=== PATIENT | male | born 1965 | race Two or more races ===

== ENCOUNTER 2017-11-07 13:14 | Emergency (ER) | payer SELFPAY ==
[~2017-11-07] VITALS: Ht 177.8 cm; Wt 99.8 kg
[2017-11-07 13:24] VITALS: BP 135/82
== END 2017-11-07 14:16 | disposition home or self-care (01) ==
LOC: ER 13:15
DX: L02.212 Cutaneous abscess of back [any part, except buttock and flank] (principal); J45.909 Unspecified asthma, uncomplicated
CPT/HCPCS: 99282; A4606; Z7610